=== PATIENT | female | born 1985 | race Caucasian/White ===

== ENCOUNTER 2017-04-03 19:30 | Emergency (ER) | payer OTHER ==
[2017-04-03 19:41] VITALS: BP 138/95; PULSE 105; TEMP 99.1
[2017-04-03 19:51] LABS: URINE APPEARANCE Clear; URINE BILIRUBIN Negative (NEGATIVE); URINE BLOOD Negative (NEGATIVE); URINE COLOR YELLOW; URINE GLUCOSE (UA) Negative (NEGATIVE); URINE KETONE Trace (NEGATIVE); URINE LEUK ESTERASE Negative (NEGATIVE); URINE NITRITE Negative (NEGATIVE); URINE PROTEIN Trace (NEGATIVE); URINE UROBILINOGEN 0.2 (0.2-1.0)
--- NOTE | 2017-04-03 19:57 | PDOC ---
History of Present Illness - General History Source: Patient Exam Limitations: No Limitations - History of Present Illness Initial Comments: 04/03/17 19:59 The patient is a 31 year old female with a significant past medical history of Polycystic ovarian syndrome as a child, who presents to the ED with superpubic pain, and generalized headache that began today. Patient denies lightheadedness today but states she had lightheadedness last night after taking a bath. Denies losing consciousness. Patient states she had a positive urine test done a week and a half ago. She has not visited a doctor since but states she was last sexually active with her partner on February 20, 2017. Patient denies flank pain, dysuria, frequency, hematuria. Denies vaginal bleeding, discharge. Denies fever, chills, nausea, vomiting, diarrhea. LMP: End of January Patient states she was last year and in 2010 but had spontaneous miscarriages both times. Past surgical history: Back surgery in 2009. Patient is allergic to penicillin. <Leighton George - Last Filed: 04/03/17 20:08> <Mikayla Sanabria - Last Filed: 04/04/17 05:33> - General Chief Complaint: Pain Stated Complaint: ABD CRAMPING Time Seen by Provider: 04/03/17 19:34 Past History <Leighton George - Last Filed: 04/03/17 20:08> - Past Medical History Cardiac Disorders: Yes (MVP, PVC'S) Psychiatric Problems: Yes (ANXIETY) - Reproductive History Is Patient Now?: (states positive home test) - Immunization History Immunization Up to Date: Yes - Psycho/Social/Smoking Cessation Hx Anxiety: No Suicidal Ideation: No Smoking History: Current every day smoker Have you smoked in the past 12 months: Yes Number of Cigarettes Smoked Daily: 4 Information on smoking cessation initiated: Yes 'Breaking Loose' booklet given: 04/03/17 Hx Alcohol Use: No Drug/Substance Use Hx: No Substance Use Type: Alcohol <Mikayla Sanabria - Last Filed: 04/04/17 05:33> - Past Medical History Allergies/Adverse Reactions: Allergies Allergy/AdvReac Type Severity Reaction Status Date / Time Penicillins Allergy Verified 04/03/17 19:33 Home Medications: Ambulatory Orders NK [No Known Home Medication] 04/03/17 Review of Systems - Review of Systems Able to Perform ROS?: Yes Comments:: 04/03/17 20:00 GENERAL/CONSTITUTIONAL: No fever or chills. No weakness. HEAD, EYES, EARS, NOSE AND THROAT: No change in vision. No ear pain or discharge. No sore throat. CARDIOVASCULAR: No chest pain or shortness of breath. RESPIRATORY: No cough, wheezing, or hemoptysis. GASTROINTESTINAL: No nausea, vomiting, diarrhea or constipation. GENITOURINARY: + superpubic pain. No dysuria, frequency, or change in urination. MUSCULOSKELETAL: No joint or muscle swelling or pain. No neck or back pain. SKIN: No rash NEUROLOGIC: + headache. No vertigo, loss of consciousness, or change in strength /sensation. ENDOCRINE: No increased thirst. No abnormal weight change. HEMATOLOGIC/LYMPHATIC: No anemia, easy bleeding, or history of blood clots. ALLERGIC/IMMUNOLOGIC: No hives or skin allergy. <Leighton George - Last Filed: 04/03/17 20:08> *Physical Exam - Vital Signs Last Vital Signs Temp Pulse Resp BP Pulse Ox 99.1 F 105 H 20 138/95 99 04/03/17 19:30 04/03/17 19:30 04/03/17 19:30 04/03/17 19:30 04/03/17 19:30 - Physical Exam Comments: 04/03/17 20:00 GENERAL: The patient is awake, alert, and fully oriented, in no acute distress. HEAD: Normal with no signs of trauma. EYES: Pupils equal, round and reactive to light, extraocular movements intact, sclera anicteric, conjunctiva clear with no pallor. ENT: Ears normal, nares patent, oropharynx clear without exudates. Moist mucous membranes. NECK: Normal range of motion, supple without lymphadenopathy, JVD, or masses. LUNGS: Breath sounds equal, clear to auscultation bilaterally. No wheeze/ crackles. HEART: Regular rate and rhythm, normal S1 and S2 without murmur or rub. ABDOMEN: Soft/nontender/nondistended. BS wnl. No guarding or rebound. No palpable masses. No hepatosplenomegaly. EXTREMITIES: Normal range of motion, no edema. No clubbing or cyanosis. No cords , erythema, or tenderness. NEUROLOGICAL: Cranial nerves II through XII grossly intact. Normal speech, normal gait. PSYCH: Normal mood, normal affect. SKIN: Warm, Dry, normal turgor, no rashes or lesions noted. <Leighton George - Last Filed: 04/03/17 20:08> - Vital Signs Last Vital Signs Temp Pulse Resp BP Pulse Ox 99.1 F 105 H 20 138/95 99 04/03/17 19:30 04/03/17 19:30 04/03/17 19:30 04/03/17 19:30 04/03/17 19:30 <Mikayla Sanabria - Last Filed: 04/04/17 05:33> ED Treatment Course - ADDITIONAL ORDERS Additional order review: Laboratory Results 04/03/17 19:35 Urine Color Yellow Urine Appearance Clear Urine pH 6.0 Ur Specific [place] 1.015 Urine Protein Trace Urine Glucose (UA) Negative Urine Ketones Trace Urine Blood Negative Urine Nitrite Negative Urine Bilirubin Negative Urine Urobilinogen 0.2 Ur Leukocyte Esterase Negative Urine HCG, Qual Positive <Leighton George - Last Filed: 04/03/17 20:08> - LABORATORY CBC & Chemistry Diagram: 04/03/17 20:00 04/03/17 20:00 <Mikayla Sanabria - Last Filed: 04/04/17 05:33> Progress Note - Progress Note Progress Note: Documentation has been prepared under my direction and personally reviewed by me in its entirety. I attest that this documented accurately reflects all work, treatment, procedures and medical decision making performed by me. <Mikayla Sanabria - Last Filed: 04/04/17 05:33> Medical Decision Making - Medical Decision Making As noted above, [id number] 31-year-old woman presents with history of positive urine test and suprapubic pain. There there is no history of vaginal bleeding/discharge and she has no other associated symptoms except for mild lightheadedness yesterday (now resolved). Exam is unremarkable. Laboratory evaluation was drawn including quantitative beta hCG/CBC/chemistry profile Ultrasound was performed to evaluate for evidence of extrauterine . Ultrasound showed small yolk sac ,intrauterine, without evidence of ovarian torsion or ovarian masses/tubal masses or other abnormality. Gestational age estimated at 5 weeks Quantitative beta hCG was 2517 Remainder of the laboratory evaluation was unremarkable. Results discussed with the patient. She has scheduled appointment with her cargo agent on April 08. Meanwhile, she can take Tylenol for the pain and return here if she has worsening pain or severe vaginal bleeding. <Mikayla Sanabria - Last Filed: 04/04/17 05:33> *DC/Admit/Observation/Transfer - Attestations Scribe Attestion: 04/03/17 20:00 Documentation prepared by Leighton George, acting as medical staff coordinator for Mikayla Sanabria MD. <Leighton George - Last Filed: 04/03/17 20:08> <Mikalya Sanabria - Last Filed: 04/04/17 05:33> Diagnosis at time of Disposition: Suprapubic abdominal pain, First trimester - Discharge Dispostion Disposition: HOME Condition at time of disposition: Stable - Patient Instructions Printed Discharge Instructions: DI for -- Discomforts and Remedies Additional Instructions: Avoid strenuous activity Drink plenty of fluids Tylenol as needed for pain Return to ER if you have severe pain/severe vaginal bleeding Follow-up with your cargo agent on April 08 as scheduled
[2017-04-03] MEDS ORDERED: SODIUM CHLORIDE 1,000 ML IV STA (19:59)
[2017-04-03 20:20] LABS: BASOPHIL 1.4 % (0-2.0); MCH 30.9 pg (25.7-33.7); MCHC 33.9 g/dl (32.0-36.0); MEAN CELL VOLUME 90.9 fl (80-96); NEUTROPHILS 63.7 % (42.8-82.8); PLATELET COUNT 215 K/MM3 (134-434); WHITE BLOOD COUNT 9.5 K/mm3 (4.0-10.8)
[2017-04-03 20:26] LABS: PROTHROMBIN TIME (PATIENT) 11.2 SEC (10.2-13.0)
[2017-04-03 20:31] LABS: ALBUMIN 4.1 g/dl (3.5-5.0); ALK PHOS 28 U/L (32-92); ANION GAP 6 (8-16); BILIRUBIN,TOTAL 0.3 mg/dl (0.2-1.0); CALCIUM 9.1 mg/dl (8.4-10.2); CO2 25 mmol/L (22-28); CREATININE 0.8 mg/dl (0.6-1.3); GLUCOSE,RANDOM 77 mg/dl (74-106); SGOT/AST 24 U/L (10-42); SGPT/ALT 12 U/L (10-40); TOT PROT 6.5 g/dl (6.4-8.3)
== END 2017-04-03 22:22 | disposition home or self-care (01) ==
LOC: FER 19:30
PROC: 3E0337Z Introduction of Electrolytic and Water Balance Substance into Peripheral Vein, Percutaneous Approach (ICD-10-PCS; principal; 2017-04-03)
DX: O26.891 Other specified pregnancy related conditions, first trimester (principal); R10.30 Lower abdominal pain, unspecified; Z3A.01 Less than 8 weeks gestation of pregnancy
CPT/HCPCS: 36415; 76801-TC; 80053; 81003; 84702; 84703; 85025; 85610; 86850; 86900; 86901; 96360; 99283-25